=== PATIENT | female | born 1990 | race Caucasian/White ===

== ENCOUNTER 2017-10-26 08:00 | Outpatient (CLI) | payer OTHER ==
[2017-10-26 12:24] LABS: MUDS CUTOFF CONCENTRATIONS CUTOFF CONC BELOW:
[2017-10-26 12:39] LABS: AMPHETAMINE SCREEN,URINE NEGATIVE (NEGATIVE); BENZODIAZEPINES SCREEN, URINE NEGATIVE (NEGATIVE); COCAINE SCREEN URINE NEGATIVE (NEGATIVE); METHADONE SCREEN, URINE NEGATIVE (NEGATIVE); METHAMPHETAMINES SCREEN, URINE NEGATIVE (NEGATIVE); OPIATE SCREEN, URINE NEGATIVE (NEGATIVE); OXYCODONE SCREEN, URINE NEGATIVE (NEGATIVE); PROPOXYPHENE SCREEN, URINE NEGATIVE (NEGATIVE); TRICYCLIC ANTIDEPRESSANT,URINE NEGATIVE (NEGATIVE)
== END 2017-10-26 08:01 ==
LOC: LAB.R 08:00
PROVIDERS: ATTEND Obstetrics & Gynecology
DX: Z34.81 Encounter for supervision of other normal pregnancy, first trimester (principal)
CPT/HCPCS: 80306

== ENCOUNTER 2017-10-27 13:47 | Outpatient (CLI) | payer OTHER ==
[2017-10-27 18:53] LABS: BASOPHILS % (AUTO) 0.2 %; EOSINOPHILS # (AUTO) 0.1 10^3/uL (0.0-0.7); EOSINOPHILS % (AUTO) 1.8 %; HGB - HEMOGLOBIN 11.9 g/dL (12.0-16.0); LYMPHOCYTES # (AUTO) 2.3 10^3/uL (1.5-3.5); LYMPHOCYTES % (AUTO) 28.2 %; MEAN CORPUSCULAR HEMOGLOBIN 27.6 pg (27.0-31.0); MEAN CORPUSCULAR HGB CONC 33.4 g/dL (32.0-36.0); MEAN CORPUSCULAR VOLUME 82.6 fL (81.0-99.0); MEAN PLATELET VOLUME 8.4 fL (7.9-10.8); MONOCYTES # (AUTO) 0.5 10^3/uL (0.0-1.0); MONOCYTES % (AUTO) 6.6 %; NEUTROPHILS # (AUTO) 5.1 10^3/uL (1.5-6.6); NEUTROPHILS % (AUTO) 63.2 %; PLT - PLATELET COUNT 260 10^3/uL (130-450); RED CELL DISTRIBUTION WIDTH 14.3 % (12.0-15.0); WHITE BLOOD COUNT 8.1 x10^3/uL (4.8-10.8)
[2017-10-27 18:58] LABS: BILIRUBIN,URINE NEGATIVE (NEGATIVE); GLUCOSE, URINE (UA) NEGATIVE (NEGATIVE); KETONES,URINE (UA) NEGATIVE (NEGATIVE); LEUKOCYTE ESTERASE, URINE NEGATIVE (NEGATIVE); NITRITE,URINE NEGATIVE (NEGATIVE); OCCULT BLOOD,URINE NEGATIVE (NEGATIVE); PROTEIN,URINE NEGATIVE (NEGATIVE); UROBILINOGEN,URINE 0.2 (NORMAL) E.U./dL (NORMAL)
[2017-10-27 19:03] LABS: CLARITY,URINE CLEAR (CLEAR)
[2017-10-27 19:32] LABS: BACTERIA,URINE Moderate /HPF (None Seen); CRYSTALS,URINE 3-5 Calcium Oxalate /LPF; MUCUS,URINE Few Strands; RBC,URINE None Seen /HPF (0-5); SQUAMOUS EPITHELIAL CELL,UR MOD Squamous (<= Few); YEAST,URINE PRESENT
[2017-10-28 12:17] LABS: HEPATITIS B SURFACE ANTIGEN NON-REACTIVE (NON-REACTIVE)
[2017-10-28 14:32] LABS: HEPATITIS C ANTIBODY NON-REACTIVE (NON-REACTIVE)
[2017-10-28 14:48] LABS: HIV AG/AB 4TH GEN NON-REACTIVE (NON-REACTIVE)
== END 2017-10-27 13:48 | disposition home or self-care (01) ==
LOC: LAB.N 13:47
PROVIDERS: ATTEND Obstetrics & Gynecology
DX: Z34.81 Encounter for supervision of other normal pregnancy, first trimester (principal)
CPT/HCPCS: 36415; 81001; 81599; 84163; 85025; 86592; 86762; 86803; 86850; 86900; 86901; 87340; 87389

== ENCOUNTER 2017-11-18 08:59 | Outpatient (CLI) | payer OTHER | END 2017-11-18 09:00 | disposition home or self-care (01) | LOC: LAB.N 08:59 | PROVIDERS: ATTEND Obstetrics & Gynecology | DX: Z34.81 Encounter for supervision of other normal pregnancy, first trimester (principal); Z13.79 Encounter for other screening for genetic and chromosomal anomalies | CPT/HCPCS: 36415; 81599; 82105; 82677; 84163; 84702; 86336 ==

== ENCOUNTER 2017-12-22 12:34 | Outpatient (CLI) | payer OTHER ==
--- NOTE | 2017-12-22 16:38 | Ultrasound Report ---
Procedure Date: 12/22/2017 Accession Number: [id number] / [id number] Procedure: US - OB Detailed Eval CPT Code: FULL RESULT: EXAM: OB Detailed Eval DATE: 12/22/2017 3:24 PM CLINICAL HISTORY: ENCOUNTER FOR SCREENING,UNSPECIFIED TECHNIQUE: Real-time scanning was performed with contracts representative static images obtained. COMPARISON: None LAST MENSTRUAL PERIOD: Uncertain Clinical Age: Uncertain US Age: 21 weeks 3 days EFW Hadlock: 431 grams EFW % Hadlock: % Heart Rate: 146 bpm EDC: US EDC: 05/01/2018 BPD Hadlock: 22 weeks 0 days; Mean mm 52 HC Hadlock: 21 weeks 1 days; Mean mm 189 AC Hadlock: 21 weeks 5 days; Mean mm 167 FL Hadlock: 21 weeks 2 days; Mean mm 36 Presentation: Vertex Placental Location: Fundal/Posterior Cervical Length: 4.6 cm Amniotic Fluid: NATALYA Subjectively normal cm; MVP 3.7 cm FINDINGS: The following anatomic structures were seen and appear normal: The intracranial contents, including the ventricles and posterior fossa; the lips and orbits; the spine; the heart, including 4 chamber view and outflow tracts, and diaphragm; the abdominal contents, including the stomach, the bilateral kidneys, and urinary bladder, as well as a normal 3-vessel cord insertion; 4 limbs. IMPRESSION: Single intrauterine gestation age by composite ultrasound measurements today 21 weeks 3 days with ultrasound EDC 05/01/2018. No anatomic anomalies are identified.
== END 2017-12-22 12:35 | disposition home or self-care (01) ==
LOC: DI 12:34
PROVIDERS: ATTEND Obstetrics & Gynecology
DX: Z36.9 Encounter for antenatal screening, unspecified (principal)
CPT/HCPCS: 76811

== ENCOUNTER 2018-02-01 08:00 | Outpatient (CLI) | payer OTHER ==
[2018-02-01 12:51] LABS: HGB - HEMOGLOBIN 10.7 g/dL (12.0-16.0); MEAN CORPUSCULAR HEMOGLOBIN 29.2 pg (27.0-31.0); MEAN CORPUSCULAR HGB CONC 33.2 g/dL (32.0-36.0); MEAN CORPUSCULAR VOLUME 87.7 fL (81.0-99.0); MEAN PLATELET VOLUME 8.9 fL (7.9-10.8); RED BLOOD COUNT 3.69 10^6/uL (4.20-5.40); RED CELL DISTRIBUTION WIDTH 14.1 % (12.0-15.0); WHITE BLOOD COUNT 9.1 x10^3/uL (4.8-10.8)
== END 2018-02-01 08:01 | disposition home or self-care (01) ==
LOC: LAB.N 08:00
PROVIDERS: ATTEND Obstetrics & Gynecology
DX: Z34.90 Encounter for supervision of normal pregnancy, unspecified, unspecified trimester (principal)
CPT/HCPCS: 36415; 82950; 85027; 86850

== ENCOUNTER 2018-04-11 08:00 | Outpatient (CLI) | payer OTHER | END 2018-04-11 08:01 | LOC: LAB.R 08:00 | PROVIDERS: ATTEND Registered Nurse | DX: Z34.83 Encounter for supervision of other normal pregnancy, third trimester (principal) | CPT/HCPCS: 87081 ==

== ENCOUNTER 2018-04-15 08:00 | Outpatient (CLI) | payer OTHER | END 2018-04-15 08:01 | disposition home or self-care (01) | LOC: LAB.R 08:00 | PROVIDERS: ATTEND Nurse Practitioner Obstetrics & Gynecology | DX: Z11.3 Encounter for screening for infections with a predominantly sexual mode of transmission (principal) | CPT/HCPCS: 87491; 87591 ==

== ENCOUNTER 2018-04-15 11:26 | Outpatient (CLI) | payer OTHER ==
[2018-04-16 12:36] LABS: HEPATITIS C ANTIBODY NON-REACTIVE (NON-REACTIVE)
[2018-04-16 13:27] LABS: HIV AG/AB 4TH GEN NON-REACTIVE (NON-REACTIVE)
[2018-04-19 10:52] LABS: HSV 2 IGG TYPE SPECIFIC AB <0.90 index
== END 2018-04-15 11:27 | disposition home or self-care (01) ==
LOC: LAB 11:26
PROVIDERS: ATTEND Nurse Practitioner Obstetrics & Gynecology
DX: Z11.3 Encounter for screening for infections with a predominantly sexual mode of transmission (principal)
CPT/HCPCS: 36415; 81599; 86695; 86696; 86803; 87389; 87491

== ENCOUNTER 2018-04-25 08:00 | Inpatient (IN) | payer OTHER ==
[2018-04-25] MEDS ORDERED: SODIUM CHLORIDE FLUSH 0.9% 10 ML SYRINGE ONE ×2 (08:33→09:07)
--- NOTE | 2018-04-25 08:49 | ANESTHESIA ---
Pre-Anesthesia VS, & Labs - Diagnosis Abnormal presentation (transverse lie) - Procedure Version Vital Signs: Temp Pulse Resp BP Pulse Ox 36.9 C 97 16 108/68 04/25/18 08:22 04/25/18 08:22 04/25/18 08:22 04/25/18 08:22 Height 5 ft 6 in Weight (kg) 84.822 kg - NPO >8 hours - Is Patient ?: Yes Home Medications and Allergies Allergies/Adverse Reactions: Allergies Allergy/AdvReac Type Severity Reaction Status Date / Time No Known Drug Allergies Allergy Verified 04/25/18 08:27 Anes History & Medical History - Anesthetic History Anesthesia Complications: reports: No previous complications Family history of Anesthesia Complications: Denies Family history of Malignant Hyperthermia: Denies - Medical History Cardiovascular: reports: None Pulmonary: reports: None Gastrointestinal: reports: None Urinary: reports: None Neuro: reports: None Musculoskeletal: reports: None Endocrine/Autoimmune: reports: None Blood Disorders: reports: None Skin: reports: None Smoking Status: Never smoker Psychosocial: reports: No issues indicated - Surgical History Orthopedic: Arthroscopic surgery - Obstetrical History Events: positive: None Complications: positive: None Problems: Abnormal presentation/transverse lie OB Anesthesia History: Exam General: Alert, Oriented x3, Cooperative, No acute distress Dental: WNL Mouth Openin Fingerbreadth Neck Mobility: Normal Mallampati classification: I Thyromental Distance: 4-6 cm Respiratory: Lungs clear, Normal breath sounds, No respiratory distress, No accessory muscle use Cardiovascular: Regular rate, Normal S1, Normal S2, No murmurs Mental/Cognitive Status: Alert/Oriented X3, Normal for patient Cognitive Status: Within normal limits Plan Anesthesia Type: Epidural (For labor pain as indicated), Other (Anesthesia on standby for possible GA) Consent for Procedure(s) Verified and Reviewed: Yes Code Status: Attempt Resuscitation ASA classification: 2-Mild systemic disease Is this case an emergency?: No
[2018-04-25] MEDS ORDERED: LACTATED RINGERS 1,000 ML IV ONE (08:53)
[2018-04-25] MEDS ORDERED: TERBUTALINE 1 MG/ML VIAL SUBQ ONE ×2 (08:53→09:03)
--- NOTE | 2018-04-25 09:14 | OPERATIVE REPORT ---
Operative Report - General Procedure Date: 04/25/18 Planned Procedure: External version; possible urgent Pre-Op Diagnosis: Ultrasound confirmed breech to transverse presentation, backup Procedure Performed: External version Post Op Diagnosis: Successful version to vertex; 38-week gestation - Procedure Note Primary Surgeon: Pelon Vazquez MD Anesthesia Provider: Alon Dasilva, certified nurse installer apprentice Anesthesia Technique: Other (Anesthesia on standby) Pathology: None IV Fluids (mL): 250 Estimated Blood Loss (mL): 0 Urine Output (mL): 200 (Patient spontaneously voided on intake, estimated volume) Complications: None - Other Other Information/Narrative: Prior to the Version procedure ultrasound examination was done to confirm malpre sentation. Mobile Paulo Breech presentation was found and it could be easily converted to back up transverse. There was adequate fluid and initial NST was reactive. The version procedure was explained to the patient in detail including risks versus benefits. Patient understands that version is not always successful and is sometimes can precipitate distress and immediate section. Patient has been n.p.o since last night. She understands the risks and benefits. Informed consent paperwork signed. IV access was begun. Terbutaline 0.25 mg subcu was given. OR was on standby and installer apprentice present in the room. Abdomen was coated with ultrasound gel for a slippery surface. Again ultrasound was used to confirm position. A forward somersault roll was the chosen maneuver for version. Surgeon placed pressure on the head & spine and rolled it through the transverse and towards the pelvis. At the same time, nursing center tutor (Summer Cedillo RN) grasped the breech and massaged it upwards until a complete vertex presentation was confirmed by ultrasound. We held this position for 3 minutes and noted normal heart tones on ultrasound. The pressure was then released and the vertex presentation remained. Cervical exam found a 2 cm dilation 50% effacement -1 station and far posterior. RhoGam is not required. Patient is a 38 weeks and has an unstable presentation that is been converted to vertex. Given cervical examination induction today is recommended to prevent spontaneous conversion back to breech.
[2018-04-25 09:29] LABS: BASOPHILS % (AUTO) 0.3 %; EOSINOPHILS # (AUTO) 0.2 10^3/uL (0.0-0.7); EOSINOPHILS % (AUTO) 2.1 %; HGB - HEMOGLOBIN 11.3 g/dL (12.0-16.0); LYMPHOCYTES % (AUTO) 22.2 %; MEAN CORPUSCULAR HEMOGLOBIN 28.4 pg (27.0-31.0); MEAN CORPUSCULAR HGB CONC 34.4 g/dL (32.0-36.0); MEAN CORPUSCULAR VOLUME 82.6 fL (81.0-99.0); MEAN PLATELET VOLUME 8.4 fL (7.9-10.8); MONOCYTES # (AUTO) 0.8 10^3/uL (0.0-1.0); MONOCYTES % (AUTO) 8.4 %; PLT - PLATELET COUNT 200 10^3/uL (130-450); RED BLOOD COUNT 3.99 10^6/uL (4.20-5.40); RED CELL DISTRIBUTION WIDTH 14.6 % (12.0-15.0)
[2018-04-25] MEDS ORDERED: SODIUM CHLORIDE FLUSH 0.9% 10 ML SYRINGE IVP PRN (09:44)
[2018-04-25] MEDS: LACTATED RINGERS 1,000 ML IV SCH ×2 (11:17→21:28)
[2018-04-25] MEDS: miSOPROStol 100 MCG TABLET BC SCH ×2 (11:23→15:29)
[2018-04-25] MEDS ORDERED: SODIUM CHLORIDE FLUSH 0.9% 10 ML SYRINGE IVP SCH (17:00)
--- NOTE | 2018-04-25 17:23 | PROVIDER PROGRESS NOTE ---
Labor Progress Note - Uterine Monitoring Uterine Monitoring Mode: positive: External toco, Palpation Contraction Frequency (min/apart): Every 3 minutes Contraction Intensity: positive: Mild to moderate Uterine Resting Tone: positive: Soft - Monitoring Monitor Mode: positive: External ultrasound Heart Rate Baseline: 135 Heart Rate Variability: positive: Moderate (6-25 bmp) Accelerations: positive: Present, 15x15 Decelerations: positive: None Strip Review: positive: Category I - Vaginal Exam Dilation (in cm): 3 cm Effacement (%): 100% for text Station: 0 Cervical Position: Midposition - Labor Progress Note Labor Progress Note/Additional Text: Patient is received 2 doses of misoprostol and contractions are evident on tracing and by palpation. Subtle cervical change has occurred in the head is sent enrolling into the pelvis. Artificial rupture of membranes yielded clear fluid. Discussed pain relief strategies inclusive of narcotic, nitrous oxide and epidural. Patient favors epidural. Plan epidural placement after her evening meal.
--- NOTE | 2018-04-25 17:26 | HISTORY & PHYSICAL EXAMINATION ---
Admit History - Visit Reason Visit Reason: Other (Patient experienced a successful version from breech to vertex this morning but lie still is unstable. Induction planned to take advantage of current vertex presentation and inducible cervix..) - : 2 Parity: 1 Premature: 0 Ectopic: 0 : 0 Care: positive: Other ([facility]) Risk/History: positive: None Complications This : positive: None Smoking Status: Never smoker - Mother's Labs Mother's Blood Type: positive: O Mother's RH: positive: Positive GBS: positive: Group B Step Negative Rubella Status: positive: Immune (Total lab review: blood type O+ antibody screen negative; HIV negative; rubella immune; RPR negative; urine toxicology screen negative; glucose challenge test 135; GBS negative; GC and Chlamydia negative.) - Other Maternal History Other Maternal History: Suzie is a 27-year-old primigravida at 38 weeks 1 day gestation who receives routine care at the [facility]. She has had 10 visits with all the providers in the practice, both midwifery and physician. LMP is 07/20 yielding EDC of 26 April. 5 weeks 6-day crown-rump length set EDC at 07 May. On 1018 she was confirmed is a breech presentation and scheduled for external version today. That was successfully completed and patient is set up for immediate induction because of in stable lie. Patient's is in the active duty [place] and currently with their child. He intends to come later today during the induction. Reference records Meds/Allgy - Allergies Allergies/Adverse Reactions: Allergies Allergy/AdvReac Type Severity Reaction Status Date / Time No Known Drug Allergies Allergy Verified 04/25/18 08:27 Physical - Abdominal Exam Vital Signs: Temp Pulse Resp BP Pulse Ox 98.4 F 97 16 108/68 04/25/18 08:22 04/25/18 08:22 04/25/18 08:22 04/25/18 08:22 Physical Exam - Physical Exam General: positive: No acute distress, Alert HEENT: positive: EOMI, Moist mucous membranes, Dentition normal Neck: positive: Supple w/out meningeal sx, Thyroid normal Cardiac: positive: Regular Rate, Other (No significant murmur or gallop) Resipratory: positive: Clear to ausultation jeff Abdomen: positive: Normal Bowel sounds, Tender to palpation (Minimally tender abdomen from external version abdominal wall manipulation.) Female : positive: Normal external, Dilated cervix (2 cm, 50% effaced, -1 station far posterior), Enlarged uterus (Uterus appropriate size for term estimated weight to be 7-1/2-8-1/2 pounds. Bony pelvis adequate), Other (External heart tracing category 1 without any contractions, 135 baseline good accelerations), Electronic Field Service Engineer present Extremities: positive: Normal ROM, No pedal edema Skin: positive: Warm and dry Neurologic: positive: Alert and Oriented X 3, Normal motor/no weakness, Normal reflexes, Normal Sensation, Normal Speech Assessment/Plan - Assessment/Plan Assessment: This is a term by reliable dating methods who this morning was successfully everted from breech to vertex. line is still somewhat unstable and therefore this opportunity is taken for induction. There are no concerns about well-being and the pelvis seems adequate for size. Plan: * Discussed the mechanics of induction with the patient as well as potential risks. Patient understands that beginning induction does not necessarily guarantee of vaginal delivery. She was given reassurance that size and bony pelvis seems adequate. She is aware of the slight increase in section risk, cord prolapse risk, infection, prolonged labor and possible precipitation of distress. * Will begin induction with serial Cytotec 50 mcg per Bucal membrane every 4 hours. As labor progresses, I intend to rupture membranes. Patient expresses a desire for epidural if possible.
[2018-04-25] MEDS ORDERED: fent/BUPIV 2 MCG/0.125% 250 ML EP ONE (20:00)
[2018-04-25] MEDS ORDERED: BUPIVACAINE 0.25% PF 10 ML VIAL ONE (20:21)
[2018-04-25] MEDS ORDERED: ePHEDrine 50 MG/ML VIAL IVP PRN (20:52)
[2018-04-25] MEDS ORDERED: NALBUPHINE 10 MG/ML AMP IVP PRN (20:52)
[2018-04-25] MEDS ORDERED: ONDANSETRON 4 MG/2 ML VIAL IVP PRN (20:52)
[2018-04-25] MEDS ORDERED: NALOXONE 0.4 MG/ML VIAL IVP PRN (20:52)
[2018-04-25] MEDS ORDERED: LACTATED RINGERS 500 ML IV ONE (20:52)
[2018-04-25] MEDS ORDERED: fent/BUPIV 2 MCG/0.125% 250 ML EP PRN (20:52)
[2018-04-25] MEDS ORDERED: OXYTOCIN/SODIUM CHLORIDE 500 ML IV SCH (22:00)
--- NOTE | 2018-04-26 01:06 | DELIVERY NOTE ---
Delivery Note - Labor Labor: positive: Augmented by oxytocin - Delivery Method Delivery Method: positive: Spontaneous vaginal delivery - Presentation Presentation: positive: Vertex - Nuchal Cord Nuchal Cord: positive: None - Anesthetic Anesthetic Type: - Amniotic Fluid Description Amniotic Fluid Description: positive: Clear - Episiotomy Type Episiotomy Type: positive: None - Laceration Laceration: positive: None - Delivery Outcome Delivery Outcome: positive: Livebirth - : positive: Placed in direct skin contact with mother, Stimulated, Warmed sex: positive: Male ( weight = 7 lbs 14 oz. Apgars 8/9; No obvious congenital anomalies or defects) - Cord Cord: positive: 3 vessels - Placenta Placenta: positive: Intact - Estimated Blood Loss Estimated Blood Loss (in cc): 300 - Post Delivery Events Post Delivery Events: positive: No post delivery events - Delivery Comments (Free Text/Narrative) Delivery Comments (Free Text/Narrative): Placenta is grade 2; no signs of infection or abruption & normal cord insertion. At 2200 hrs. patient was noted to be 3cm, -2 station. Throughout labor, the tracing was category 1. During a routine nursing epidural check, patient was discovered to be silently and went on to quickly & atraumatically deliver a male fetus. Bibi Harrison RN was present. And I was immediately summoned. There was no difficulty with shoulder delivery. I arrived shortly after and inspected the perineum. The perineum, vagina and cervix were inspected and found intact. The placenta was delivered with gentle traction intact. Post delivery bleeding was a slight. The uterus firmed up well with message and IV Pitocin given. Mother baby and father all bonded well. Fink and epidural were discontinued.
[2018-04-26] MEDS ORDERED: HYDROcod/ACETAM 5/325 MG TABLET PO PRN (01:11)
[2018-04-26] MEDS ORDERED: diphenhydrAMINE 25 MG CAPSULE PO PRN (01:11)
[2018-04-26] MEDS ORDERED: WITCH HAZEL/GLYCERIN 1 EACH MED..PAD TOP PRN (01:11)
[2018-04-26] MEDS ORDERED: ACETAMINOPHEN 325 MG TABLET PO PRN (01:11)
[2018-04-26] MEDS ORDERED: OXYTOCIN/SODIUM CHLORIDE 250 ML IV ONE (01:11)
[2018-04-26] MEDS ORDERED: HYDROCORTISONE/PRAMOXINE 10 GM PR PRN (01:11)
[2018-04-26] MEDS ORDERED: ZOLPIDEM 5 MG TABLET PO PRN (01:11)
[2018-04-26] MEDS: IBUPROFEN 600 MG TABLET PO SCH ×4 (03:38→21:08)
[2018-04-26] MEDS: DOCUSATE SODIUM 100 MG CAPSULE PO SCH ×2 (09:47→21:08)
[2018-04-26] MEDS: LACTATED RINGERS 1,000 ML IV SCH (12:12)
[2018-04-26 13:34] LABS: BASOPHILS % (AUTO) 0.2 %; EOSINOPHILS # (AUTO) 0.3 10^3/uL (0.0-0.7); EOSINOPHILS % (AUTO) 2.2 %; HGB - HEMOGLOBIN 10.2 g/dL (12.0-16.0); LYMPHOCYTES # (AUTO) 2.1 10^3/uL (1.5-3.5); LYMPHOCYTES % (AUTO) 17.5 %; MEAN CORPUSCULAR HEMOGLOBIN 28.5 pg (27.0-31.0); MEAN CORPUSCULAR HGB CONC 34.3 g/dL (32.0-36.0); MEAN PLATELET VOLUME 8.5 fL (7.9-10.8); MONOCYTES # (AUTO) 0.8 10^3/uL (0.0-1.0); MONOCYTES % (AUTO) 7.1 %; NEUTROPHILS # (AUTO) 8.6 10^3/uL (1.5-6.6); PLT - PLATELET COUNT 209 10^3/uL (130-450); RED BLOOD COUNT 3.56 10^6/uL (4.20-5.40); RED CELL DISTRIBUTION WIDTH 14.8 % (12.0-15.0); WHITE BLOOD COUNT 11.8 x10^3/uL (4.8-10.8)
[2018-04-27] MEDS: IBUPROFEN 600 MG TABLET PO SCH ×2 (04:21→10:00)
[2018-04-27 08:03] VITALS: BP 115/73
--- NOTE | 2018-04-27 08:40 | Discharge Plan ---
Discharge Plan Disposition: 01 Home, Self Care Condition: Good Diet: Regular Activity Restrictions: Activity as Tolerated Shower Restrictions: No Driving Restrictions: No Weight Bearing: Full Weight No Smoking: If you smoke, Please STOP! Call for help. Follow-up with: Rakan Ortega CNM, ARNP [Provider Admit Priv/Credential] -
[2018-04-27] MEDS: DOCUSATE SODIUM 100 MG CAPSULE PO SCH (10:00)
[2018-04-27] MEDS ORDERED: MEASLES,MUMPS & RUBELLA VACC 0.5 ML VIAL SUBQ ONE (11:00)
--- NOTE | 2018-04-27 12:11 | Labor Flowsheet ---
Labor Flowsheet Datetime Report Generated by CPN: 04/27/2018 12:11 Datetime: 04/27/2018 07:40 VITAL SIGNS NBP Sys/Merna/Mean (mmHg): 115 : 73 : 82 Pulse: 83 SpO2 (%): 100 LaborFlag: Labor Datetime: 04/26/2018 00:34 UTERINE ACTIVITY Monitor Mode: External Frequency (min): 1.5-3 Quality: Moderate Duration (sec): 60-90 Pattern: Normal: <= 5 Contractions in 10 Minutes Resting Tone (Palpate): Relaxed ASSESSMENT A Monitor Mode: External US FHR Baseline Rate : 120 Variability: Moderate 6-25 bpm Accelerations: 15X15 Comments: possible decel, poor tracing d/t movement off monitor Datetime: 04/26/2018 00:30 Patient Position/Activity: Left Lateral TEACHING Instructional Method: Verbal Plan of Care: Plan of Care Discussed Datetime: 04/26/2018 00:19 Monitor Interventions for FHR: Ultrasound Adjusted Datetime: 04/26/2018 00:15 Decelerations: Variable Category: Category II Datetime: 04/26/2018 00:00 Pitocin Checklist: At Least 1 Acceleration of 15 bpm x 15 Seconds in 30 Minutes or Adequate Variabi lity; No More than 1 Late Deceleration Occurred in Past 30 Minutes; No More than 2 Variable Decelerat ions > 60 Seconds in Duration and decreasing >60 bpm in 30 minutes; Uterus Palpates Soft between Cont ractions Contraction Comments: possible tachysystole - monitoring continuous PAIN Pain Scale: 0 Pain Presence: None/Denies Pain Type: N/A Datetime: 04/25/2018 23:40 Unit Routine: Medications Labor/Induction: Augmentation; Activity Medications: Pitocin Datetime: 04/25/2018 23:33 Monitor Interventions for UA: [place] Adjusted Datetime: 04/25/2018 23:27 Patient Care Comments: w/ peanut ball Datetime: 04/25/2018 23:25 MEDICATIONS Pitocin (milliunits): Increased to @ 1 Datetime: 04/25/2018 23:00 Respirations: 16 Temperature (C): 36.5 Datetime: 04/25/2018 22:57 Anesthesia Level Check: T8- Ribs Datetime: 04/25/2018 21:56 I/O Interventions: Fink Cath Inserted Datetime: 04/25/2018 21:32 Provider Notified (Name): Dr. Vazquez Communication Comments: provider updated - pt received epidural, contractions spaced out a bit 1-4 min. apart with little change SVE 3.5/50/-2; received orders for low dose pit aug and indwelling cath eter placement; RN to do SVE in 4 hours Datetime: 04/25/2018 21:25 VAGINAL EXAM Dilatation (cm): 3.5 Effacement (%): 50 Station: -2 Exam by: JAIRON Granados Cervix, Consistency: Moderate Cervix, Position: Midposition Datetime: 04/25/2018 21:04 Pain Relief Measures: Epidural Given Datetime: 04/25/2018 21:03 Antiemetics/Antacids: Zofran (mg) @ Datetime: 04/25/2018 20:33 Epidural Procedure: Loading Dose Datetime: 04/25/2018 20:23 ANESTHESIA Epidural Positioning: Sitting Datetime: 04/25/2018 20:20 COMMUNICATION Communication: Provider at Bedside Datetime: 04/25/2018 20:05 Pain Management: Epidural Datetime: 04/25/2018 20:03 MATERNAL ASSESSMENT Level of Consciousness: Fully Conscious Breath Sounds, Left: Clear and Equal Breath Sounds, Right: Clear and Equal Nausea/Vomiting: Denies Datetime: 04/25/2018 19:49 Pain Assessment Comments: pt requesting epidural at this time Datetime: 04/25/2018 19:39 Pain Location: Abdomen Pain Coping: Talking Through Contractions Datetime: 04/25/2018 19:01 Oxygen Method: Room Air Datetime: 04/25/2018 18:22 Comfort Measures: Breathing/Relaxation Datetime: 04/25/2018 16:50 Membrane Status: Ruptured Membranes Rupture Method: Artificial Amniotic Fluid Color: Clear Amniotic Fluid Amount: Moderate Amniotic Fluid Odor: Normal Vaginal Bleeding: Normal Show Vaginal Exam Comments: AROM Datetime: 04/25/2018 15:30 Headache: Temporal RUQ Epigastric Pain: Denies PATIENT CARE IV/Blood Work: IV Saline Locked Datetime: 04/25/2018 14:39 Intensity IUP (mmHg): mild Datetime: 04/25/2018 14:33 FHR Baseline Changes: No Baseline Change Datetime: 04/25/2018 12:30 Temperature Route: Oral Datetime: 04/25/2018 11:30 Stage of : Labor Cervical Ripening Agents: Cytotec @ Datetime: 04/25/2018 11:09 Membranes Ruptured Date/Time: 04/25/2018 16:50
--- NOTE | 2018-04-27 13:54 | DISCHARGE SUMMARY ---
Physician: Pelon Vazquez MD DATE OF ADMISSION: 04/25/2018 DATE OF DISCHARGE: 04/27/2018 DIAGNOSES 1. Breech presentation, successfully verted to vertex. 2. Induction of labor. 3. A 39-week gestation. PROCEDURES 1. External cephalic version. 2. Vaginal delivery of a living male . COMPLICATIONS: None. HISTORY: Patient is a 27-year-old primiparous patient at 38 weeks and 1-day gestation, who was noted to be in breech presentation on her last obstetrics check. After informed consent, she desired version. Reference typewritten H and P. Blood type is O positive without antibodies; GBS negative, rubella immune. Refer to my detailed H&P. HOSPITAL COURSE: After assessment of fetus, we prepared for a version. Patient had IV line started, mother given terbutaline, and Anesthesia was standing by, as well as OR crew. Reference version note. The version was easily executed, using a forward somersault maneuver and 2 operators. Pelvic exam confirmed vertex -2 station in the pelvis. The fetus tolerated the procedure well. Immediately after version, lie was movable, and we elected to begin induction. Induction was begun with Cytotec. By 1700, cervix was noted to be 3 cm, 100%, and 0 station. Therefore, the membranes were ruptured with clear fluid. Epidural was begun shortly after. Patient labored with dense epidural. At 2200, check revealed 3 cm with clear fluid and cat 1 tracing. At 0030 hours, on a routine check, patient was noted to be , even though she did not complain of pain or pressure. I was called but did not arrive; head and shoulders were uneventfully delivered. The placenta then was delivered intact. Genital tract was inspected, and there were no lacerations. Reference delivery note. Total blood loss was 300, and the uterus firmed well with massage and Pitocin. Patient rested during the day of the . She showed excellent technique. Her flow steadily stemmed. By the morning of the , she desired discharge. Warning sign and callback instructions were reviewed. She will see Rakan Ortega in 1 week for routine post-delivery check and coaching. DISCHARGE MEDICATION: Motrin 600 mg q.6 hours p.r.n. TD: 04/27/2018 08:59 LIZ
== END 2018-04-27 12:00 | disposition home or self-care (01) | DRG 807 ==
LOC: WFO 08:00 → FBP 08:05 → WFO 09:14 → UNDOADMIN 09:15 → FBP 09:15
PROVIDERS: ADMIT Obstetrics & Gynecology; ATTEND Obstetrics & Gynecology
PROC: 3E0P7VZ Introduction of Hormone into Female Reproductive, Via Natural or Artificial Opening (ICD-10-PCS; 2018-04-25)
PROC: 10E0XZZ Delivery of Products of Conception, External Approach (ICD-10-PCS; principal; 2018-04-26)
DX: O32.0XX0 Maternal care for unstable lie, not applicable or unspecified (principal); O32.1XX0 Maternal care for breech presentation, not applicable or unspecified; Z37.0 Single live birth; Z3A.39 39 weeks gestation of pregnancy
CPT/HCPCS: 36415; 59412; 85025